=== PATIENT | male | born 1950 | race Caucasian/White ===

== ENCOUNTER 2024-07-07 18:04 | Emergency (ER) | payer OTHER, SELFPAY ==
[2024-07-07 18:07] VITALS: BP 128/87; PULSE 91; RESP 18; TEMP 36.6; O2SAT 97; BMI 25.7
[2024-07-07 19:05] VITALS: BP 123/72; PULSE 82; RESP 18; O2SAT 93
--- NOTE | 2024-07-07 19:11 | CT_ITS ---
EXAM: CT HEAD WITHOUT INTRAVENOUS CONTRAST CLINICAL INDICATION: Intermittent dizziness TECHNIQUE: Multiple axial images were obtained of the head without intravenous contrast. This CT exam was performed using one or more of the following dose reduction techniques: automated exposure control, adjustment of the mA and/or kV according to patient size, and/or use of iterative reconstruction technique. COMPARISON: No relevant prior studies available. FINDINGS: BRAIN AND EXTRA-AXIAL SPACES: Spherical hyperdensity within the anterior aspect of the third ventricle near the foramina of [place] is identified measuring approximately 0.9 cm consistent with a colloid cyst. No evidence of hydrocephalus. There is non-specific periventricular hypoattenuation which is most commonly related to chronic microvascular ischemic disease in a patient of this age. No additional intracranial mass or mass effect and no shift of midline structures. No evidence of acute infarct or acute intracranial hemorrhage. BONES/JOINTS: No significant abnormality. No discrete lytic or blastic abnormalities. VASCULATURE: Arteriosclerosis. SINUSES: No significant findings. MASTOID AIR CELLS: No significant effusion. ORBITS: No acute findings. CT/Brain/Head without Contrast IMPRESSION: 1. 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 2. Chronic microvascular ischemic changes. No additional evidence of acute intracranial pathology. Electronically Signed: Kishore Alegre DO at 20:32 EST ,
--- NOTE | 2024-07-07 19:11 | EKG12_ITS ---
Test Reason : REPEAT Blood Pressure : */* mmHG Vent. Rate : 69 BPM Atrial Rate : 69 BPM P-R Int : 158 ms QRS Dur : 86 ms QT Int : 388 ms P-R-T Axes : 50 10 23 degrees QTcB Int : 415 ms Sinus rhythm with Premature atrial complexes with Aberrant conduction Possible Left atrial enlargement Borderline ECG Confirmed by Tripp Cedeño ([id number]), acquisition editor ESTELLE WALKER ([id number]) on 07/08/2024 1:29:16 PM Referred By: Confirmed By: Tripp Cedeño
--- NOTE | 2024-07-07 19:13 | ED.RN ---
NO OLD EKG
[2024-07-07 19:24] VITALS: O2SAT 93
--- NOTE | 2024-07-07 19:25 | RAD_ITS ---
EXAM: XR CHEST, 2 VIEWS CLINICAL INDICATION: chest pain TECHNIQUE: Frontal and lateral views of the chest. COMPARISON: No relevant prior studies available. FINDINGS: LUNGS AND PLEURAL SPACES: Hyperinflated lungs with diffuse interstitial prominence. No dense consolidated airspace disease to suggest pneumonia. Likely minimal subsegmental atelectasis or scarring in the right lower lobe. No pneumothorax. No effusion. HEART: No significant abnormality. Cardiac silhouette not enlarged. MEDIASTINUM: Central airways and mediastinal contour are unremarkable. BONES/JOINTS: No significant abnormality. No acute fracture. SOFT TISSUES: No significant abnormality. RAD/Chest PA and Lateral IMPRESSION: Hyperinflated lungs with diffuse interstitial prominence. No dense consolidated airspace disease to suggest pneumonia. Likely minimal subsegmental atelectasis or scarring in the right lower lobe. Electronically Signed: Kishore Alegre DO at 20:29 EST ,
--- NOTE | 2024-07-07 19:34 | EX.ED.DYSGE1 ---
HPI History of Present Illness Chief Complaint: Dizziness Narrative Narrative: Patient is a 74-year-old male with past medical history of rheumatoid arthritis, vertigo who presents to the emergency department chief complaint of intermittent dizziness for the past week. Patient states that he has an irregular heartbeat when he was attempting to donate blood this was when this was discovered. He states that he did not follow-up with a doctor about this. Patient in triage note states that this has been going on for a week he states that the irregular heartbeat has been going on for approximately a month now. Patient states that he is able to do his normal daily activities and chores without difficulty. He states that the past week he has noted intermittent dizziness especially when he turns his head or a certain way or attempts to bend over and pick something up. He states that if he rolls around in bed his symptoms are worse. He states that this does feel like his vertigo. He states that he thought things would get better but given his irregular heartbeat he was concerned and came here for further evaluation management. He states that originally thought he was coming down with upper respiratory infection as his significant other had this recently as well. [facility] Medical History Rheumatoid arthritis Allergy/AdvReac Type Severity Reaction Status Date / Time No Known Allergies Allergy Verified 07/07/24 18:06 Surgical History Hx of hernia repair Social History Smoking Status: Never smoker ROS ROS ED ROS Narrative Constitutional: Denies fevers, chills, headaches, lightness, dizziness Eyes: Denies change in vision double vision blurry vision Cardiovascular: Denies chest pain or palpitations Respiratory: Denies coughing wheezing shortness of breath Abdomen: Denies abdominal pain nausea vomit diarrhea : Denies any urinary symptoms Neurological: Denies numbness, weakness, tingling Musculoskeletal: Denies back pain Skin: Denies rashes or lesions EXAM Physical Exam Narrative Exam Narrative: General: Patient lying in bed rest comfortably did not appear to be acute distress Head: Atraumatic, normocephalic Eyes: PERRL bilaterally, EOMI bladder, no conjunctival injection noted Neck: Soft, supple, trachea midline Cardiovascular: Regular rate and rhythm no murmurs gallops rubs noted Respiratory: Clear to auscultation bilaterally Abdomen: Soft, nondistended, nontender to palpation, bowel sounds present x 4 Extremities: +5/5 strength noted in the bilateral upper and lower extremities, radial pulses +2/4 in the bilateral extremities, no pedal edema exam Neurological: Patient follow commands knew that he was at [facility] years 2023. NIH of 0 GCS 15. Patient states that when he turns his head to the side this will exacerbate his symptoms but if he turns his head back to send and remained still his symptoms quickly dissipate Skin: Warm, dry, intact no rashes or lesions noted Const Vital Signs: 07/07/24 18:07 07/07/24 19:05 07/07/24 19:24 Temperature 97.8 F Temperature Source Temporal Pulse Rate 91 82 Respiratory Rate 18 18 Blood Pressure 128/87 H 123/72 H Blood Pressure Mean 100 89 Pulse Ox 97 93 93 Oxygen Delivery Method Room Air Room Air 07/07/24 20:00 07/07/24 21:00 Temperature 98.4 F Temperature Source Oral Pulse Rate 72 81 Respiratory Rate 14 16 Blood Pressure 109/79 104/67 Blood Pressure Mean 89 79 Pulse Ox 98 98 Oxygen Delivery Method Room Air Room Air MDM MDM MDM Narrative Medical decision making narrative: Patient is a 74-year-old male who presented to the Emergency Department with a concern of irregular heartbeat and dizziness. On the differential diagnose includes but not limited to vertigo, posterior circulation stroke although feel this less likely as this has been intermittent for the last week and is positional in nature, atrial fibrillation, atrial flutter, premature ventricular complexes, premature atrial complexes. Once workup is obtained reviewed he will be reevaluated. Patient CBC reviewed and showed no evidence leukocytosis white blood count normal 4.8, hemoglobin 12.8, plate count was noted to be 189. Patient's INR 1.1, PT of 14.2. Patient sodium normal at 137, potassium of 4.3, creatinine normal at 0.88. Patient's glucose was noted be 126, magnesium normal at 2.1. Patient troponin normal at 6. Patient's EKG reviewed and independently interpreted myself showed sinus rhythm with a rate of 69 bpm with premature atrial complexes noted. Patient's chest x-ray reviewed by myself and by radiology showed hyperinflated lungs with diffuse interstitial prominence no dense consolidated airspace disease to suggest pneumonia. Likely minimal subsegmental atelectasis or scarring in the right lower lobe. Patient CT head and brain without contrast showed colloid cyst without hydrocephalus. Chronic microvascular ischemic changes no additional evidence of acute intracranial pathology. I repeated a EKG again and the repeat EKG at 2130 showed sinus rhythm with premature atrial complexes with a rate of 69 bpm. On reevaluation of the patient he is feeling fine he would like to go home at this point time. I was going to prescribe a Holter monitor however we are out of them currently in the emergency department. He was advised he needs to obtain 1 in the outpatient setting. Patient states that he already has meclizine at home for his vertigo does not want a prescription for this. Once again his dizziness is intermittent and positional in nature and has been going on for approximately a week now. He was encouraged return with worsening symptoms or concerns. He and his family members are agreeable this plan all question concerns answered is discharged home in stable condition. Lab Data Labs: Laboratory Results - last 24 hr 07/07/24 19:17 WBC 4.8 RBC 3.80 L Hgb 12.8 L Hct 37.7 L MCV 99.2 H MCH 33.7 H MCHC 34.0 RDW Std Deviation 49.8 H RDW Coeff of Benedict 13.9 Plt Count 189 MPV 9.5 Immature Gran % (Auto) 0.200 Neut % (Auto) 45.3 L Lymph % (Auto) 35.6 Bay % (Auto) 14.3 H Eos % (Auto) 3.1 Baso % (Auto) 1.5 H Absolute Neuts (auto) 2.2 Absolute Lymphs (auto) 1.70 Nucleated RBC % 0 PT 14.2 INR 1.1 APTT 26.7 Sodium 137 Potassium 4.3 Chloride 106 Carbon Dioxide 28.0 Anion Gap 3 L BUN 24 H Creatinine 0.88 Estim Creat Clear Calc 66.46 Est GFR (MDRD) Af Amer 109 Est GFR (MDRD) Non-Af 90 BUN/Creatinine Ratio 27.2 H Glucose 126 H Calcium 9.1 Magnesium 2.1 Troponin I High Sens 6 Radiography Diagnostic Testing: Clinical Impression(s) from Imaging Studies Brain CT 07/07/24 19:11 IMPRESSION: 1. 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 2. Chronic microvascular ischemic changes. No additional evidence of acute intracranial pathology. Electronically Signed: Kishore Alegre DO at 20:32 EST , Chest X-Ray 07/07/24 19:25 IMPRESSION: Hyperinflated lungs with diffuse interstitial prominence. No dense consolidated airspace disease to suggest pneumonia. Likely minimal subsegmental atelectasis or scarring in the right lower lobe. Electronically Signed: Kishore Alegre DO at 20:29 EST , Discharge Plan Triage Chief Complaint: Dizziness ED Provider: Ross Valenzuela Dx/Rx/DC Orders Clinical Impression: Vertigo, Atrial complex, premature Instructions: ED BPV Vertigo Other Ambulatory Orders: 14 Day Event Recorder Preventi (Urgent) Timeframe: 1 Day Facility: [facility] - Location: Cardiovascular Services Ordered By: Dr. Ross Valenzuela Primary Care Provider: Oziel Morin Referrals: Oziel Morin MD [Primary Care Provider] - Tripp Cedeño MD [Med Staff - Active Staff] - Activity Restrictions/Additional Instructions: Follow-up with your primary care physician outpatient setting. Follow-up with cardiology that referred to as well. Obtain the event monitor that was prescribed. Return with worsening symptoms and concerns. Print Language: Vincentian Disposition Disposition: Home, Self Care
[2024-07-07 19:45] LABS: Absolute Neutrophil Count 2.2 X10^3/uL (2.0-7.7); Basophil# 0.07 X10^3/uL; Basophil% 1.5 % (0-1); Eosinophil# 0.15 X10^3/uL; Eosinophils% 3.1 % (0-5); Hematocrit 37.7 % (40-54); Hemoglobin 12.8 g/dL (13.0-16.5); Lymphocyte % 35.6 % (19-41); Mean Corpuscular Hgb 33.7 pg (27.0-32.0); Mean Corpuscular Volume 99.2 fL (80-94); Mean Platelet Vol. 9.5 fl (6.2-12.0); Monocyte# 0.68 X10^3/uL; Monocyte% 14.3 % (0-10); NRBC Flagged by Analyzer 0 % (0-5); Neutrophil # 2.16 X10^3/uL (2.7-7.7); Neutrophil % 45.3 % (47-70); Platelet Count 189 K/mm3 (150-450); RBC Distribution Width CV 13.9 % (11.6-14.6); RBC Distribution Width SD 49.8 fl (35.1-43.9); White Blood Count 4.8 K/mm3 (4.4-11.0)
[2024-07-07 20:00] VITALS: BP 109/79; PULSE 72; RESP 14; TEMP 36.9; O2SAT 98
[2024-07-07 20:01] LABS: International Normalized Ratio 1.1; Prothrombin Time (Protime)PT. 14.2 SECONDS (11.7-14.9)
[2024-07-07 20:02] LABS: Partial Thromboplast Time 26.7 Seconds (24.1-36.2)
[2024-07-07 20:08] LABS: Anion Gap 3 (5-15); BUN 24 mg/dL (7-18); BUN/Creat Ratio 27.2 RATIO (10-20); Calcium,Total 9.1 mg/dL (8.5-10.1); Chloride 106 mmol/L (98-107); Creatinine, Serum 0.88 mg/dL (0.70-1.30); EST Glomerular Filtration Rate 90 mL/min (>60); Est Glom Filt Rate - Afr Amer 109 mL/min (>60); Estimated Creatinine Clearance 66.46 ml/min; Glucose 126 mg/dL (74-106); Magnesium 2.1 mg/dL (1.6-2.6); Potassium 4.3 mmol/L (3.5-5.1); Sodium Level 137 mmol/L (136-145); Troponin-I HS 6 pg/mL (3.0-78.0)
[2024-07-07 21:00] VITALS: BP 104/67; PULSE 81; RESP 16; O2SAT 98
--- NOTE | 2024-07-07 21:29 | EKG12_ITS ---
Test Reason : DYSRHYTHMIA Blood Pressure : */* mmHG Vent. Rate : 69 BPM Atrial Rate : 69 BPM P-R Int : 152 ms QRS Dur : 80 ms QT Int : 380 ms P-R-T Axes : 48 28 34 degrees QTcB Int : 407 ms Sinus rhythm with marked sinus arrhythmia Possible Left atrial enlargement Borderline ECG Confirmed by Tripp Cedeño ([id number]), editorial clerk ESTELLE WALKER ([id number]) on 07/08/2024 1:29:24 PM Referred By: TB Confirmed By: Tripp Cedeño
--- NOTE | 2024-07-07 21:35 | ED.RN ---
NO OLD EKG
[2024-07-07 22:00] VITALS: BP 103/76; BP 103/78; PULSE 72; PULSE 78; RESP 16; TEMP 37.1; TEMP 37.2; O2SAT 98; O2SAT 99
== END 2024-07-07 22:02 | disposition home or self-care (01) ==
PROVIDERS: Emergency Provider Emergency Medicine; PCP Family Medicine; Visit Provider Emergency Medicine
DX: R42 Dizziness and giddiness (principal); I49.1 Atrial premature depolarization
CPT/HCPCS: 70450; 71046; 80048; 83735; 84484; 85025; 85610; 85730; 93005; 99284; A4216

== ENCOUNTER → 2024-09-15 | Outpatient (CLI) | payer OTHER, SELFPAY | END | disposition home or self-care (01) | PROVIDERS: PCP Family Medicine; Referring Provider Internal Medicine Cardiovascular Disease; Visit Provider Internal Medicine Cardiovascular Disease | DX: R94.31 Abnormal electrocardiogram [ECG] [EKG] (principal); I48.92 Unspecified atrial flutter; I48.0 Paroxysmal atrial fibrillation; I49.1 Atrial premature depolarization | CPT/HCPCS: 36415; 84443 ==

== ENCOUNTER → 2024-10-22 | Outpatient (CLI) | payer SELFPAY, OTHER ==
--- NOTE | 2024-10-22 07:12 | ECHOD_ITS ---
Reason For Study Reason For Study: ATRIAL FIB-FLUTTER Procedure This was a 2D Doppler, Color Flow transthoracic echocardiogram. Exam performed in department. Left Ventricle Normal size and thickness. Redundant mitral valve cords noted. The LV systolic function is normal. EF is 60 %. Normal diastology for age. Right Ventricle Normal right ventricle. Atria Normal left atrium. The right atrium is mildly enlarged. Mitral Valve Mild (1+) mitral valve insufficiency. Tricuspid Valve Trivial tricuspid valve insufficiency. Normal pulmonary artery pressure. Aortic Valve Trisinus/trileaflet aortic valve. Pulmonic Valve Trivial pulmonic valve insufficiency. Great Vessels Normal sized aortic root. Pericardium/Pleural No pericardial effusion. MMode/2D Measurements & Calculations LVIDd: 4.9 cm IVSd: 0.96 cm Ao root diam: 3.2 cm LVIDs: 3.2 cm LVPWd: 0.91 cm RVDd: 3.5 cm FS: 35.2 % LAV(MOD-bp): 36.0 ml LVAd ap4: 27.2 cm2 SV(MOD-sp4): 59.9 ml LAV(MOD-bp) Indexed: 20.3 ml/m2 LVLd ap4: 7.2 cm SI(MOD-sp4): 33.9 ml/m2 LAV(MOD-sp2): 33.6 ml EDV(MOD-sp4): 87.8 ml LAV(MOD-sp4): 37.5 ml EDV(sp4-el): 86.9 ml LVAs ap4: 13.6 cm2 LVLs ap4: 5.8 cm ESV(MOD-sp4): 27.9 ml ESV(sp4-el): 27.0 ml EF(MOD-sp4): 68.3 % EF(sp4-el): 69.0 % SV(sp4-el): 59.9 ml LA A4 area: 15.4 cm2 LA dimension(2D): 3.5 cm RA A4 area: 15.1 cm2 TAPSE: 2.2 cm Time Measurements MV dec time: 0.18 sec Doppler Measurements & Calculations MV E max jerald: 66.3 cm/sec Lat Peak E' Jerald: 10.8 cm/sec Med Peak E' Jerald: 11.4 cm/sec MV A max jerald: 66.9 cm/sec E/E' lat: 6.1 E/E' med: 5.8 MV E/A: 0.99 Ao V2 max: 131.8 cm/sec LV V1 max: 73.5 cm/sec PA V2 max: 130.8 cm/sec Ao max P.9 mmHg LV V1 max P.2 mmHg TR max jerald: 265.8 cm/sec TR max P.3 mmHg ECHO/Echo Complete Interpretation Summary The LV systolic function is normal. EF is 60 %. The right atrium is mildly enlarged. Mild (1+) mitral valve insufficiency. Ordering Physician: Anushka Mosley Referring Physician: TATO RAY Performed By: Claudia Reeder RDCS
--- NOTE | 2024-10-22 11:17 | STRESSREP_ITS ---
Stress Test Report Date: 10/22/2024 Procedure: Pharmacologic stress nuclear imaging study Indications: Arrhythmia Consent: Per the patient Procedure: The patient underwent pharmacologic (Regadenoson 0.4mg ) evaluation with a peak heart rate of 100 beats per minute (68%predicted maximal heart rate) and a peak blood pressure of 138/90 mmHg. The baseline ECG demonstrated sinus rhythm. The peak pharmacologic ECG showed no ischemic changes. Frequent PVCs noted pretest, during infusion and in recovery. There was no complaint of chest discomfort during pharmacologic infusion or recovery. The patient was injected with 11.3 millicuries of technetium 99m Cardiolite and subsequently rest SPECT Cardiolite nuclear imaging was obtained in the horiz ontal long, vertical long, and short axis views. The patient underwent pharmacologic (Regadenoson) evaluation. The patient was injected with 34.5 millicuries of technetium 99m Cardiolite and subsequently stress SPECT Cardiolite nuclear imaging was obtained in the horizontal long, vertical long, and short axis views. A gated Cardiolite study at peak stress was obtained. The examination was stopped secondary to completion of protocol. Rest and stress SPECT Cardiolite nuclear imaging status post realignment, normalization, and attenuation correction demonstrate no fixed or reversible perfusion defects. There is end systolic thickening and brightening. The gated Cardiolite study demonstrates myocardial thickening and inward wall motion. The reported LVEF is 61%. Impression: 1. Pharmacologic (Regadenoson) evaluation 2. Peak pharmacologic ECG with no ischemic changes. 3. Frequent PVCs noted pretest, during pharmacologic infusion and in recovery. 5. Rest and stress SPECT Cardiolite nuclear imaging demonstrate relative uniform tracer uptake and myocardial perfusion appearing within normal limits. 6. The gated Cardiolite study reports an LVEF of 61%. This note was generated with Powered Outcomesation software. It may contain incorrect words, spelling, and punctuation that were not noted in checking the note before signing.
== END | disposition home or self-care (01) ==
LOC: CVS 07:11
PROVIDERS: PCP Family Medicine; Referring Provider Internal Medicine Cardiovascular Disease; Visit Provider Internal Medicine Cardiovascular Disease
DX: R94.31 Abnormal electrocardiogram [ECG] [EKG] (principal); I48.20 Chronic atrial fibrillation, unspecified; I48.92 Unspecified atrial flutter; I49.1 Atrial premature depolarization; R42 Dizziness and giddiness
CPT/HCPCS: 78452; 93017; 93306; A9500; A4216; J2785